=== PATIENT | female | born 1935 | race Caucasian/White ===

== ENCOUNTER 2023-05-05 09:57 | Emergency (ER) | payer OTHER, SELFPAY ==
[2023-05-05] VITALS (9 sets, daily range): BP systolic 94–131; BP diastolic 58–72; PULSE 88–104; BMI 22.6
--- NOTE | 2023-05-05 10:22 | ED.GENMED ---
History of Present Illness
General
Chief Complaint: Fall
Source: patient
Exam Limitations: none
Time Seen by Provider: 05/05/23 09:59
Nursing documentation reviewed up to this point in time: agreed with
History of Present Illness
History of Present Illness:
Patient is an 87-year-old female who presents to the ER for evaluation after fall. Patient reports prior to arrival so she was in her bathroom at 7:30 am and describes' feeling a whosh' and then reports she fell hitting the back of her head on the
tile floor. She got up on her own. She denies loss of consciousness. She denies any headache nausea vomiting neck pain. She is on blood thinners. She does complain of laceration behind her ear on her scalp.
She does report that she started with a runny nose yesterday but denies any fevers. Denies any cough shortness of breath. She denies any abdominal pain nausea vomiting urinary frequency urgency or dysuria
She also reports she has had some pain in her right buttocks down her right leg for the past several days ever since trying to move a chair using her hips and not her arms. From today's fall she denies any upper or lower extremity injury.
For her pain that she believes is nerve pain that she has had for the past several days she has been taking ibuprofen but only 400 mg once a day.
Review of Systems
Review of Systems
Allergies reviewed?: Yes
All Other Systems: ROS reviewed and negative except as documented in HPI and ROS
Constitutional: Reports no symptoms; Denies fever, fatigue or chills
EENT: Reports runny nose
Respiratory: Reports no symptoms
Cardiac: Reports no symptoms
ABD/GI: Reports no symptoms
: Reports no symptoms
Musculoskeletal: Reports other (pain radiating from right buttocks to right leg )
Skin: Reports other (laceration to right scalp )
Neurological: Reports no symptoms; Denies dizzy or headache ( no loc )
Hematologic/Lymphatic: Reports no symptoms
Psychiatric: Reports no symptoms
Phy Exam
General Physical Exam
General Presentation: no apparent distress
General age: appears stated age
General Skin: warm and dry
General Habitus: elderly
General Mental: alert
General Hydration: appears well hydrated
ENT Exam
ENT Exam: EOMI and neck supple
Eye Exam
Eye Exam: PERRL and EOMI
Eye Exam General: PERRL: bilateral and EOM intact: bilateral
Pupil Exam: Bilateral: round and reactive
Cardiovascular Exam
Cardiovascular Exam: regular rate/rhythm, no murmur and normal peripheral pulses
Pulmonary Exam
Pulmonary Exam: lungs clear and no respiratory distress
Neurological Exam
Neurological Exam: alert, oriented x3, no motor deficits, no sensory deficits and other (Distal sensation to bilateral extremities intact normal dorsiflexion plantarflexion)
Shankar Coma Scale
Eye Opening: Spontaneous
Verbal Response: Oriented
Motor Response: Obeys Commands
GCS Total Score: 15
Musculoskeletal Exam
Musculoskeletal Exam: other (Patient with 1 and half centimeter horizontally situated laceration which is full-thickness just posterior to right ear no hematoma no bony cervical spine tenderness, full range of motion to all upper lower extremities,
no lower extremity swelling)
Skin Exam
Skin Exam: normal color and warm/dry
Psychiatric Exam
Psychiatric Exam: normal mood/affect
Course
Orders/Labs/Results
Orders:
Orders
05/05/23 10:21
CT Cervical Spine W/o Iv Contr Urgent
Comment:
Reason For Exam: trauma
CT Head W/o Iv Contrast Urgent
Comment:
Reason For Exam: trauma
05/05/23 10:22
Tetanus/Diphth/Acelpertussis [Adacel] 0.5 ml IM .ONCE ONE
05/05/23 10:25
IV Insert/Care/Rem.- Treatment PRN
05/05/23 10:56
Complete Blood Count/With Diff Urgent
05/05/23 11:33
Comprehensive Metabolic Panel Urgent
05/05/23 14:02
Azithromycin 500 mg/250 ml [Zithromax Infusion] 500 mg in 250 ml IV NOW
CefTRIAXone [Rocephin] 1,000 mg IV NOW STA
05/05/23 14:03
Oseltamivir Phosphate [Tamiflu] 75 mg PO NOW STA
05/05/23 14:08
Influenza A+B Rapid Molecular Urgent
WILMA Source: Nasal Swab
Specimen Description:
05/05/23 14:09
COVID-19 Antigen Urgent
Source: Nasal Swab
05/05/23 14:44
Orthostatic VS- Treatment ONCE
05/05/23 14:46
0.9% Sodium Chloride 1000 ml [Nss] 1,000 ml IV BOLUS
05/05/23 16:04
UA Reflex to Culture [Urinalysis Reflex To Culture] Urgent
Date Specimen was Collected: 05/05/23
Time Specimen was Collected: 16:03
Urine Microscopic Reflex Cult Urgent
Abnormal Lab Results
05/05/23 05/05/23 05/05/23
10:56 11:33 16:04
WBC 11.6 H 10^3/uL
(4.8-10.8)
Abs Immat Gran (auto) 0.1 H 10^3/uL
(0-0.05)
Absolute Neuts (auto) 10.4 H 10^3/uL
(1.4-6.5)
Absolute Lymphs (auto) 0.4 L 10^3/uL
(1.2-3.4)
Absolute Monos (auto) 0.7 H 10^3/uL
(0.1-0.6)
Neutrophils % 89.5 H %
(42.2-75.2)
Lymphocytes % 3.3 L %
(20.5-51.1)
Sodium 133 L mmol/L
(135-145)
Potassium 5.2 H mmol/L
(3.5-5.1)
Chloride 97 L mmol/L
(98-107)
Glucose 109 H mg/dl
(70-99)
Urine Ketones 2+ A
(Negative)
Ur Occult Blood Reflex Trace A
(Negative)
Leukocyte Esterase Rfl Trace A
(Negative)
Urine RBC 3-6 A /HPF
(0-2)
Urine Bacteria (Reflex) Few A
(Negative)
05/05/23 10:56
05/05/23 11:33
Vital Signs
Initial and Last Documented VS:
Initial Vital Signs
Temp Pulse Resp BP Pulse Ox
99.5 F 81 16 116/62 95
05/05/23 10:08 05/05/23 10:08 05/05/23 10:08 05/05/23 10:08 05/05/23 10:08
Last Documented Vital Signs
Temp Pulse Resp BP Pulse Ox
99.5 F 88 16 118/60 95
05/05/23 10:08 05/05/23 15:00 05/05/23 15:00 05/05/23 15:00 05/05/23 15:00
Rehabilitator consulted with Physician
Rehabilitator consulted with physician?: Yes
Name of Physician Consulted: No
MDM/Problems Addressed
Differential Diagnosis Includes:
not limited to:
Head injury, laceration, viral illness
MDM/Problems Addressed:
Patient is a 87-year-old female who fell this morning on the bathroom. She describes feeling of what she got dizzy and fell hitting the back of her head. She arrives awake alert. She is on blood thinners. She has not assessed patient to be
tender right posterior ear. CT head and cervical spine are negative. Family at bedside now reports every time patient gets sick she seems to fall. Yesterday she did start out with a runny nose. She tested for COVID was negative. Will recheck
COVID and flu. Patient with a minimally elevated white count of 11.6
1650: Patient remains well-appearing ate and drank here in the ER. Patient did not have orthostatic tilt however blood pressure on the lower side. She is on 2 medications for blood pressure. Will have her hold medication tonight and have a
discussion with her family doctor regarding decreasing dosages or stopping medications.
Urinalysis is negative.
Patient's potassium minimally elevated at 5.2 normal kidney function.
Patient also complains of some sciatica type right hip pain from moving a chair will DC with ibuprofen as needed
Patient feels well to go home with instructions to have repeat potassium rechecked follow-up with family doctor for lower blood pressure, wound care and increase fluids.
Patient is amatory with a steady gait no acute distress looks well.
Chronic conditions affecting care:
htn, hyperlipidemia
*Critical Care Note
Total Time (30-74mins, 75-104mins- exclusive of procedures): Not Applicable
ED Attending Note
-
Portions of this chart may have been created with voice recognition software.� Occasional wrong word or��sound alike� substitutions may have occurred due to the inherent limitations of voice recognition software.
Discharge Plan
Departure
Patient Disposition: Home (Routine Discharge)
Date of Disposition: 05/05/23
Time of Disposition: 16:45
Patient with high blood pressure during this ER visit?: No
Condition: Fair
Covid-19: Not Applicable
Discharge Problem:
Fall
Instructions: Laceration Repair With Stitches (DC)
Referrals:
Cathleen Machado MD [Family Provider] -
Activity Restrictions/Additional Instructions:
You were seen here today for a fall. You have 3 sutures that were placed in your right posterior head. Keep clean and dry for 24 hours after 24 hours wash twice a day with soap and water pat dry and apply small layer of antibiotic ointment to the
area. See doctor in 2 days for wound check and sutures are to be removed in 7 days.
Please increase fluids and stay well-hydrated.
Your blood pressure was on the lower side. Please call your family doctor to discuss blood pressure medication. You May hold your blood pressure medication tonight
Also as discussed your potassium was minimally elevated this will need to be rechecked
You may take ibuprofen 400 mg every 8 hours for the right leg discomfort. Return if any worsening of symptoms.
Interventions
Interventions:
*Risk Screen - Suicide Last Done: 05/05/23 10:08
*General Assessment Last Done: 05/05/23 10:08
*Neglect/Abuse Screening Last Done: 05/05/23 10:08
ED- Fall Risk Assessment Last Done: 05/05/23 10:08
*ED COVID-19 Vaccine History Last Done: 05/05/23 10:08
ED-Musculoskeletal Assessment Last Done: 05/05/23 10:55
ED- Neurological Assessment Last Done: 05/05/23 10:55
ED-Skin Assessment Last Done: 05/05/23 10:55
[2023-05-05] MEDS: ADACEL 0.5 ML IM (11:01)
[2023-05-05 11:05] LABS: % Basophils 0.3 % (0-2); % Eosinophils 0.2 % (0-6); % Immature Granulocytes 0.4 % (0-0.5); % Lymphocytes 3.3 % (20.5-51.1); % Monocytes 6.3 % (1.7-9.3); % Neutrophils 89.5 % (42.2-75.2); Absolute Immature Granulocytes 0.1 10^3/uL (0-0.05); Absolute Lymphocytes 0.4 10^3/uL (1.2-3.4); Absolute Monocytes 0.7 10^3/uL (0.1-0.6); Absolute Neutrophils 10.4 10^3/uL (1.4-6.5); Hematocrit 39.1 % (37.0-47.0); Hemoglobin 13.2 g/dL (12.0-16.0); Mean Corp Hgb Conc. 33.8 g/dL (33.0-37.0); Mean Corpuscular Hgb 30.5 pg (27.0-31.0); Mean Corpuscular Volume 90.3 fL (81.0-99.0); Mean Platelet Volume 9.7 fL (7.4-10.4); Nucleated Red Blood Cells % 0 %; Platelet Count 247 10^3/uL (130-400); Red Blood Cell Count 4.33 10^6/uL (4.20-5.40); Red Cell Dist. Width 13.3 % (11.5-14.5); White Blood Cell Count 11.6 10^3/uL (4.8-10.8)
--- NOTE | 2023-05-05 11:37 | EDRN ---
Chemistry redrawn and sent to lab at this time.
[2023-05-05 12:15] LABS: ALT (SGPT) 18 U/L (0-35); AST (SGOT) 32 U/L (14-36); Albumin 4.2 g/dl (3.5-5.0); Alkaline Phosphatase 72 U/L (38-126); Blood Urea Nitrogen 16 mg/dl (7-17); Calcium 10.1 mg/dl (8.4-10.2); Carbon Dioxide 26 mmol/L (22-30); Chloride 97 mmol/L (98-107); Estimated Creatinine Clearance 36 ml/min; Glucose 109 mg/dl (70-99); Potassium 5.2 mmol/L (3.5-5.1); Sodium 133 mmol/L (135-145); Total Protein 7.8 g/dl (6.3-8.2); eGFR > 60.00
--- NOTE | 2023-05-05 13:55 | EDRN ---
Alfonzo Kelly MILITARY EDUCATION COORDINATOR w/ pt's family at this time. Pt is in BR at this time.
--- NOTE | 2023-05-05 14:10 | EDRN ---
Flu and COVID tests done and sent to lab at this time. Pt is back on stretcher at this time, conversing w/ family.
[2023-05-05 14:27] LABS: COVID-19 Antigen Negative (Negative)
--- NOTE | 2023-05-05 14:48 | EDRN ---
Alfonzo Kelly ENVIRONMENTAL FIELD TECHNICIAN in room w/pt. Pt is to get a urine sample have orthostats and IVF.
--- NOTE | 2023-05-05 15:01 | EDRN ---
Alfonzo hooks NP suturing cut behind R ear lobe.
[2023-05-05] MEDS: NSS 1000 IV (15:19)
--- NOTE | 2023-05-05 15:47 | EDRN ---
Per request from Alfonzo Kelly MUSHROOM FARMER pt was administered PO fluids and boxed lunch at this time. IV fluids about 50% completed.
[2023-05-05 16:12] LABS: Urine Albumin Trace (Neg - Trace); Urine Bilirubin Negative (Negative); Urine Character Clear (Clear); Urine Color Yellow; Urine Glucose Negative (Negative); Urine Ketone 2+ (Negative); Urine Leukocyte Trace (Negative); Urine Nitrite Negative (Negative); Urine Occult Blood Trace (Negative); Urine Specific Gravity 1.015 (<1.030); Urine Urobilinogen Negative (Neg - 1+); Urine pH 6.5 (5.0-9.0)
[2023-05-05 16:31] LABS: Urine Squamous Cell 16-20 /LPF (Few)
[2023-05-05 16:32] LABS: Urine Bacteria Few (Negative)
--- NOTE | 2023-05-05 16:48 | EDRN ---
Alfonzo Kelly CAN SOLDERER in to see pt.
== END 2023-05-05 16:50 | disposition home or self-care (01) ==
LOC: EMR 09:57
PROVIDERS: Nurse Practitioner; EMERGENCY PHYSICIAN Emergency Medicine; FAMILY PHYSICIAN Family Medicine
DX: S09.90XA Unspecified injury of head, initial encounter (principal); S01.311A Laceration without foreign body of right ear, initial encounter; W19.XXXA Unspecified fall, initial encounter; Z23 Encounter for immunization; Z11.52 Encounter for screening for COVID-19
CPT/HCPCS: 99285; 96360; 90471; 70450; 72125; 80053; 81003; 81015; 85025; 87502; 87811; 90715